=== PATIENT | female | born 1945 | race Caucasian/White ===

== ENCOUNTER 2022-02-18 03:36 | Inpatient (IN) ==
[2022-02-18] MEDS ORDERED: ASPIRIN 325 MG TABLET PO STA (03:50)
[2022-02-18] MEDS: NITROGLYCERIN SL 0.4 MG TABLET SL PRN ×2 (04:00→04:25)
[2022-02-18 04:09] LABS: Basophils # 0.1 10*3/uL (0.0-0.2); Basophils % 1.2 % (0.0-0.8); Eosinophils # 0.4 10*3/uL (0.0-0.87); Eosinophils % 3.8 % (0.00-10.9); Hematocrit 28.1 VOL% (35.7-47.0); Hemoglobin 8.6 GM/DL (12.0-16.0); Immature Granulocytes % 0.4 %; Immature Granulocytes Absolute 0.05 #; Lymphocytes # 1.9 10*3/uL (1.4-4.0); Lymphocytes % 17.2 % (21.3-54.2); Mean Corpuscular HGB Conc 30.6 GM/DL (32-36); Mean Corpuscular Volume 89.8 FL (87-102); Monocytes # 1.2 10*3/uL (0.11-0.8); Monocytes % 10.2 % (1.7-12.7); Neutrophils % 67.2 % (38.7-73.9); Platelet Count 260 T/CUMM (130-400); Red Blood Count 3.13 MC/CUMM (3.8-5.5); White Blood Count 11.3 T/CUMM (4-12)
[2022-02-18 04:19] LABS: PT Patient Result 10.6 SECS (10.1-12.1); Partial Thromboplastin Time 24.2 SECS (23.7-32.9)
[2022-02-18 04:30] LABS: Albumin 3.2 G/DL (3.4-5.0); Bilirubin,Total 0.4 MG/DL (0.20-1.00); Calcium 9.2 MG/DL (8.5-10.1); Osmolality,Calculated 276.2 MOS/KG (273-304); Potassium 3.7 MMOL/L (3.5-5.1); Total Protein 7.6 G/DL (6.4-8.2)
[2022-02-18] MEDS ORDERED: NITROGLYCERIN SL 0.4 MG TABLET SL PRN (04:32)
[2022-02-18] MEDS ORDERED: ENOXAPARIN 30 MG/0.3 ML SYRINGE SUBCUT STA (04:33)
[2022-02-18] MEDS ORDERED: MORPHINE 2 MG/1 ML SYRINGE IV STA (04:33)
[2022-02-18] MEDS ORDERED: ONDANSETRON 4 MG/2 ML VIAL IV ONE (04:33)
[2022-02-18] MEDS ORDERED: FUROSEMIDE 40 MG/4 ML VIAL IV STA (05:05)
[2022-02-18] MEDS ORDERED: GLUCAGON 1 MG VIAL IM PRN (05:50)
[2022-02-18] MEDS ORDERED: MORPHINE 2 MG/1 ML SYRINGE IV PRN (05:50)
[2022-02-18] MEDS ORDERED: ALBUTEROL 2.5 MG/3 ML NEB RESP TX PRN (05:50)
[2022-02-18] MEDS ORDERED: hydrALAZINE 20 MG/1 ML VIAL IV PRN (05:50)
[2022-02-18] MEDS ORDERED: ACETAMINOPHEN 325 MG TABLET PO PRN (05:50)
[2022-02-18] MEDS ORDERED: ONDANSETRON 4 MG/2 ML VIAL IV PRN (05:50)
[2022-02-18] MEDS ORDERED: SODIUM CHLORIDE 0.9% 1,000 ML IV SCH (06:00)
[2022-02-18] MEDS ORDERED: DEXTROSE 10% 250 ML BAG IV PRN (06:05)
[2022-02-18 06:27] LABS: Risk Ratio 6.14; Thyroid Stimulating Hormone 4.72 uIU/ml (0.358-3.74); VLDL Cholesterol 47.8 MG/DL
[2022-02-18] MEDS ORDERED: ENOXAPARIN 60 MG/0.6 ML SYRINGE SUBCUT SCH (06:30)
[2022-02-18] MEDS: INSULIN LISPRO 100 UNIT/ML SUBCUT SCH ×4 (07:32→20:55)
[2022-02-18] MEDS ORDERED: CLOPIDOGREL 300 MG TABLET PO ONE (13:14)
[2022-02-18] MEDS: PANTOPRAZOLE 40 MG TABLET PO SCH (16:21)
[2022-02-18] MEDS ORDERED: POTASSIUM CHLORIDE RIDER 10 MEQ/100 ML PREMIX IV PRN (16:53)
[2022-02-18] MEDS ORDERED: MAGNESIUM SULF RIDER 2 GM/50 ML PREMIX IV PRN (16:53)
[2022-02-18] MEDS ORDERED: FUROSEMIDE 40 MG/4 ML VIAL IV ONE (17:06)
[2022-02-18] MEDS: METOPROLOL TARTRATE 25 MG TABLET PO SCH ×2 (18:21→20:55)
[2022-02-18] MEDS: NITROGLYCERIN 2% OINT 1 INCH/GM PACK TOP SCH (20:55)
[2022-02-18] MEDS: ROSUVASTATIN 20 MG TABLET PO SCH (20:55)
[2022-02-19 04:56] LABS: Basophils # 0.1 10*3/uL (0.0-0.2); Basophils % 1.3 % (0.0-0.8); Eosinophils # 0.6 10*3/uL (0.0-0.87); Eosinophils % 6.8 % (0.00-10.9); Hematocrit 28.3 VOL% (35.7-47.0); Hemoglobin 8.5 GM/DL (12.0-16.0); Immature Granulocytes % 0.5 %; Immature Granulocytes Absolute 0.04 #; Lymphocytes # 2.1 10*3/uL (1.4-4.0); Lymphocytes % 24.5 % (21.3-54.2); Mean Corpuscular Volume 89.8 FL (87-102); Mean Platelet Volume 12.1 FL (9.6-12.0); Monocytes # 1.1 10*3/uL (0.11-0.8); Monocytes % 12.9 % (1.7-12.7); Platelet Count 248 T/CUMM (130-400); Red Blood Count 3.15 MC/CUMM (3.8-5.5); Red Cell Distribution Width 15.9 % (9.3-17.3); White Blood Count 8.7 T/CUMM (4-12)
[2022-02-19 05:21] LABS: Albumin 2.8 G/DL (3.4-5.0); Bilirubin,Total 0.4 MG/DL (0.20-1.00); Calcium 8.9 MG/DL (8.5-10.1); Osmolality,Calculated 278.7 MOS/KG (273-304); Potassium 3.5 MMOL/L (3.5-5.1); Total Protein 6.9 G/DL (6.4-8.2)
[2022-02-19] MEDS ORDERED: MAGNESIUM SULF RIDER 2 GM/50 ML PREMIX IV ONE (07:31)
[2022-02-19] MEDS ORDERED: POTASSIUM CHLORIDE 20 MEQ TABLET PO ONE (07:31)
[2022-02-19] MEDS: INSULIN LISPRO 100 UNIT/ML SUBCUT SCH ×4 (07:44→21:05)
[2022-02-19] MEDS: NITROGLYCERIN 2% OINT 1 INCH/GM PACK TOP SCH ×3 (08:30→21:05)
[2022-02-19] MEDS: METOPROLOL TARTRATE 25 MG TABLET PO SCH ×2 (08:30→21:04)
[2022-02-19] MEDS: ASPIRIN EC 81 MG TABLET PO SCH (08:30)
[2022-02-19] MEDS: PANTOPRAZOLE 40 MG TABLET PO SCH (08:30)
[2022-02-19] MEDS ORDERED: CLOPIDOGREL 75 MG TABLET PO SCH (09:00)
[2022-02-19] MEDS ORDERED: HEPARIN/NACL 0.9% 2 UNITS/ML 3,000 UNIT/1,500 ML BAG IV ONE (10:21)
[2022-02-19] MEDS ORDERED: MIDAZOLAM 2 MG/2 ML VIAL ONE (10:42)
[2022-02-19] MEDS ORDERED: fentaNYL 100 MCG/2 ML VIAL ONE (10:42)
[2022-02-19] MEDS ORDERED: SODIUM CHLORIDE 0.9% 1,000 ML IV SCH (12:00)
[2022-02-19] MEDS: FUROSEMIDE 40 MG/4 ML VIAL IV SCH (17:23)
[2022-02-19] MEDS: ROSUVASTATIN 20 MG TABLET PO SCH (21:05)
[2022-02-20] MEDS: NITROGLYCERIN 2% OINT 1 INCH/GM PACK TOP SCH ×4 (02:58→22:16)
[2022-02-20 05:08] LABS: Basophils # 0.1 10*3/uL (0.0-0.2); Basophils % 1.4 % (0.0-0.8); Eosinophils # 0.6 10*3/uL (0.0-0.87); Eosinophils % 7.5 % (0.00-10.9); Hematocrit 25.5 VOL% (35.7-47.0); Hemoglobin 7.7 GM/DL (12.0-16.0); Immature Granulocytes % 0.3 %; Immature Granulocytes Absolute 0.02 #; Lymphocytes # 1.7 10*3/uL (1.4-4.0); Lymphocytes % 23.1 % (21.3-54.2); Mean Corpuscular HGB Conc 30.2 GM/DL (32-36); Mean Corpuscular Volume 90.7 FL (87-102); Mean Platelet Volume 12.1 FL (9.6-12.0); Monocytes # 1.2 10*3/uL (0.11-0.8); Monocytes % 16.1 % (1.7-12.7); Neutrophils % 51.6 % (38.7-73.9); Platelet Count 230 T/CUMM (130-400); Red Blood Count 2.81 MC/CUMM (3.8-5.5); White Blood Count 7.3 T/CUMM (4-12)
[2022-02-20 05:30] LABS: Eosinophils 5 % (0-10); Hypochromia Slight; Lymphocytes 24 % (20-55); Microcytosis Slight; Platelet Estimate Adequate; Total Cells Counted 100
[2022-02-20 05:35] LABS: Folate 13.25 NG/ML (5.38-24.0)
[2022-02-20 05:42] LABS: Calcium 9.2 MG/DL (8.5-10.1); Osmolality,Calculated 285.4 MOS/KG (273-304); Potassium 3.8 MMOL/L (3.5-5.1)
[2022-02-20 05:48] LABS: % Iron Saturation 4.5 % (18-50); Ferritin 16.3 ng/mL (8-252)
[2022-02-20] MEDS: LEVOTHYROXINE 75 MCG TABLET PO SCH (05:55)
[2022-02-20] MEDS: PANTOPRAZOLE 40 MG TABLET PO SCH (08:16)
[2022-02-20] MEDS: DILTIAZEM CD 180 MG CAPSULE PO SCH (08:16)
[2022-02-20] MEDS: METOPROLOL TARTRATE 25 MG TABLET PO SCH ×2 (08:16→22:16)
[2022-02-20] MEDS: ESCITALOPRAM 10 MG TABLET PO SCH (08:16)
[2022-02-20] MEDS: [UNRECOGNIZED DRUG - OTHER] PO SCH (08:17)
[2022-02-20] MEDS: CONJ ESTROG MEDROXYPROGEST ACE PO SCH (08:17)
[2022-02-20] MEDS: FLUTICASONE 50 MCG NASAL SPRAY 16 GM BOTTLE BOTH NARES SCH (08:17)
[2022-02-20] MEDS: ASPIRIN EC 81 MG TABLET PO SCH (08:17)
[2022-02-20] MEDS: ENOXAPARIN 60 MG/0.6 ML SYRINGE SUBCUT SCH ×2 (08:53→22:16)
[2022-02-20] MEDS: FUROSEMIDE 40 MG/4 ML VIAL IV SCH ×2 (08:53→16:28)
[2022-02-20] MEDS: INSULIN LISPRO 100 UNIT/ML SUBCUT SCH ×4 (08:53→22:16)
[2022-02-20] MEDS: FERROUS SULFATE 325 MG TABLET PO SCH (22:16)
[2022-02-20] MEDS: ROSUVASTATIN 20 MG TABLET PO SCH (22:16)
[2022-02-21] MEDS: NITROGLYCERIN 2% OINT 1 INCH/GM PACK TOP SCH ×4 (04:16→21:26)
[2022-02-21] MEDS: LEVOTHYROXINE 75 MCG TABLET PO SCH (05:45)
[2022-02-21 08:52] LABS: Basophils # 0.1 10*3/uL (0.0-0.2); Basophils % 1.2 % (0.0-0.8); Eosinophils # 0.5 10*3/uL (0.0-0.87); Eosinophils % 7.8 % (0.00-10.9); Hematocrit 26.2 VOL% (35.7-47.0); Immature Granulocytes % 0.6 %; Immature Granulocytes Absolute 0.04 #; Lymphocytes # 1.3 10*3/uL (1.4-4.0); Lymphocytes % 20.2 % (21.3-54.2); Mean Corpuscular HGB Conc 30.5 GM/DL (32-36); Mean Platelet Volume 10.9 FL (9.6-12.0); Monocytes # 0.9 10*3/uL (0.11-0.8); Monocytes % 14.6 % (1.7-12.7); Neutrophils % 55.6 % (38.7-73.9); Platelet Count 243 T/CUMM (130-400); Red Blood Count 2.91 MC/CUMM (3.8-5.5); Red Cell Distribution Width 15.9 % (9.3-17.3); White Blood Count 6.5 T/CUMM (4-12)
[2022-02-21 09:12] LABS: Calcium 8.8 MG/DL (8.5-10.1); Potassium 3.4 MMOL/L (3.5-5.1)
[2022-02-21] MEDS: DILTIAZEM CD 180 MG CAPSULE PO SCH (09:31)
[2022-02-21] MEDS: FERROUS SULFATE 325 MG TABLET PO SCH ×2 (09:31→21:25)
[2022-02-21] MEDS: ESCITALOPRAM 10 MG TABLET PO SCH (09:31)
[2022-02-21] MEDS: ASPIRIN EC 81 MG TABLET PO SCH (09:32)
[2022-02-21] MEDS: METOPROLOL TARTRATE 25 MG TABLET PO SCH ×2 (09:32→21:25)
[2022-02-21] MEDS: PANTOPRAZOLE 40 MG TABLET PO SCH (09:32)
[2022-02-21] MEDS: CONJ ESTROG MEDROXYPROGEST ACE PO SCH (09:32)
[2022-02-21] MEDS: [UNRECOGNIZED DRUG - OTHER] PO SCH (09:32)
[2022-02-21] MEDS: FLUTICASONE 50 MCG NASAL SPRAY 16 GM BOTTLE BOTH NARES SCH (09:32)
[2022-02-21] MEDS: ENOXAPARIN 60 MG/0.6 ML SYRINGE SUBCUT SCH ×2 (09:32→21:25)
[2022-02-21] MEDS: FUROSEMIDE 40 MG/4 ML VIAL IV SCH ×2 (10:02→17:20)
[2022-02-21] MEDS: INSULIN LISPRO 100 UNIT/ML SUBCUT SCH ×4 (10:55→21:26)
[2022-02-21] MEDS: ROSUVASTATIN 20 MG TABLET PO SCH (21:25)
[2022-02-22] MEDS: NITROGLYCERIN 2% OINT 1 INCH/GM PACK TOP SCH ×3 (02:40→14:46)
[2022-02-22 04:52] LABS: Basophils # 0.1 10*3/uL (0.0-0.2); Basophils % 1.5 % (0.0-0.8); Eosinophils # 0.6 10*3/uL (0.0-0.87); Hematocrit 25.7 VOL% (35.7-47.0); Hemoglobin 7.7 GM/DL (12.0-16.0); Immature Granulocytes % 0.4 %; Immature Granulocytes Absolute 0.03 #; Lymphocytes % 27.7 % (21.3-54.2); Mean Corpuscular Volume 90.8 FL (87-102); Mean Platelet Volume 11.9 FL (9.6-12.0); Monocytes # 1.1 10*3/uL (0.11-0.8); Monocytes % 14.8 % (1.7-12.7); Neutrophils % 47.6 % (38.7-73.9); Platelet Count 259 T/CUMM (130-400); Red Blood Count 2.83 MC/CUMM (3.8-5.5); Red Cell Distribution Width 15.7 % (9.3-17.3); White Blood Count 7.4 T/CUMM (4-12)
[2022-02-22 05:20] LABS: Calcium 8.4 MG/DL (8.5-10.1); Osmolality,Calculated 278.1 MOS/KG (273-304); Potassium 3.5 MMOL/L (3.5-5.1)
[2022-02-22] MEDS: LEVOTHYROXINE 75 MCG TABLET PO SCH (06:03)
[2022-02-22] MEDS: INSULIN LISPRO 100 UNIT/ML SUBCUT SCH ×3 (09:24→15:59)
[2022-02-22] MEDS: FUROSEMIDE 40 MG/4 ML VIAL IV SCH ×2 (09:25→15:05)
[2022-02-22] MEDS: ENOXAPARIN 60 MG/0.6 ML SYRINGE SUBCUT SCH (09:27)
[2022-02-22] MEDS: DILTIAZEM CD 180 MG CAPSULE PO SCH (09:27)
[2022-02-22] MEDS: PANTOPRAZOLE 40 MG TABLET PO SCH (09:28)
[2022-02-22] MEDS: FERROUS SULFATE 325 MG TABLET PO SCH (09:28)
[2022-02-22] MEDS: ASPIRIN EC 81 MG TABLET PO SCH (09:28)
[2022-02-22] MEDS: METOPROLOL TARTRATE 25 MG TABLET PO SCH (09:28)
[2022-02-22] MEDS: [UNRECOGNIZED DRUG - OTHER] PO SCH (09:28)
[2022-02-22] MEDS: CONJ ESTROG MEDROXYPROGEST ACE PO SCH (09:28)
[2022-02-22] MEDS: ESCITALOPRAM 10 MG TABLET PO SCH (09:28)
[2022-02-22] MEDS: FLUTICASONE 50 MCG NASAL SPRAY 16 GM BOTTLE BOTH NARES SCH (09:31)
[2022-02-22 17:16] VITALS: BP 111/55
== END 2022-02-22 18:09 | disposition hospice, home (50) | DRG 286 ==
LOC: SUATTDRO → N.ED 03:36 → SUATTDRO 05:42 → N.EDINP 05:42 → N.TELEN 06:47
PROVIDERS: ADMIT Hospitalist; ATTEND Internal Medicine